=== PATIENT | female | born 1995 | race Caucasian/White ===

== ENCOUNTER 2018-08-16 07:49 | Emergency (ER) | payer MEDICAID ==
[~2018-08-16] VITALS: Ht 157.5 cm; Wt 63.5 kg
[2018-08-16] MEDS ORDERED: NAPROXEN 500 MG TABLET ONE (08:20)
--- NOTE | 2018-08-16 08:23 | NUR ---
Patient discharged to home in stable conditon. Written and verbal after care instructions given. Patient verbalizes understanding of instructions.
[2018-08-16] MEDS ORDERED: NAPROXEN 500 MG TABLET PO ONE (08:30)
== END 2018-08-16 08:25 | disposition home or self-care (01) ==
LOC: ER 07:51
DX: M25.512 Pain in left shoulder (principal)
CPT/HCPCS: 73030; A4663

== ENCOUNTER 2018-09-02 15:46 | Emergency (ER) | payer MEDICAID ==
[~2018-09-02] VITALS: Ht 160 cm; Wt 63.5 kg
[2018-09-02] MEDS ORDERED: IBUPROFEN 600 MG TABLET PO ONE (16:15)
[2018-09-02 16:17] LABS: BASOPHILS # (AUTO) 0.1 K/uL (0.0-8.0); BASOPHILS % (AUTO) 0.8 % (0.0-2.0); EOSINOPHILS % (AUTO) 0.3 % (0.0-7.0); HEMOGLOBIN 10.6 g/dL (10.9-14.3); LYMPHOCYTES # (AUTO) 1.7 K/uL (20.0-40.0); LYMPHOCYTES % (AUTO) 27.7 % (20.5-74.5); MEAN CORPUSCULAR HEMOGLOBIN 23.7 uug (24.7-32.8); MEAN CORPUSCULAR HGB CONC 32 g/dL (32.3-35.6); MONOCYTES # (AUTO) 0.5 K/uL (2.0-10.0); MONOCYTES % (AUTO) 8.2 % (0-11); NEUTROPHILS # (AUTO) 3.9 K/uL (1.8-8.9); PLATELET COUNT (AUTO) 353 K/uL (179-408); RED BLOOD CELL COUNT(AUTO) 4.47 MIL/uL (3.63-4.92); WHITE BLOOD COUNT (AUTO) 6.2 K/uL (3.8-11.8)
[2018-09-02] MEDS ORDERED: IBUPROFEN 600 MG TABLET ONE (16:22)
--- NOTE | 2018-09-02 16:28 | NUR ---
PT IS IN ROOM #2A. DR DIMAS EVALUATED THE PT.
--- NOTE | 2018-09-02 17:30 | NUR ---
Patient discharged to home in stable conditon. Written and verbal after care instructions given. Patient verbalizes understanding of instructions.
== END 2018-09-02 17:34 | disposition home or self-care (01) ==
LOC: ER 15:46
DX: M25.551 Pain in right hip (principal); M25.511 Pain in right shoulder
CPT/HCPCS: 36415; 85025; 85651; A4663

== ENCOUNTER 2019-04-28 19:45 | Emergency (ER) | payer MEDICAID, OTHER ==
[~2019-04-28] VITALS: Ht 157.5 cm; Wt 63.5 kg
--- NOTE | 2019-04-28 20:39 | NUR ---
Patient left without being seen by ER physician. Pt was triaged
== END 2019-04-28 20:41 | disposition left against medical advice (07) ==
LOC: ER 19:45
DX: Z53.21 Procedure and treatment not carried out due to patient leaving prior to being seen by health care provider (principal)
CPT/HCPCS: A4663

== ENCOUNTER 2023-03-18 11:28 | Emergency (ER) | payer OTHER ==
[~2023-03-18] VITALS: Ht 157.5 cm; Wt 62.1 kg
[2023-03-18] MEDS ORDERED: LIDOCAINE VISCUS 2% 15 ML UDC MM ONE (11:45)
[2023-03-18] MEDS ORDERED: FAMOTIDINE. 20 MG/2 ML VIAL IV ONE ×2 (11:45→11:54)
[2023-03-18] MEDS ORDERED: MAG HYDROX/AL HYDROX/SIMETH 30 ML LIQUID UDC PO ONE (11:45)
[2023-03-18] MEDS ORDERED: ONDANSETRON 4 MG/2 ML VIAL IV ONE (11:45)
[2023-03-18] MEDS ORDERED: IV NORMAL SALINE 1000 ML BAG IV ONE (11:45)
[2023-03-18 11:52] LABS: *BILIRUBIN,URIN NEGATIVE (NEGATIVE); *BLOOD, URINE NEGATIVE (NEGATIVE); *CLARITY,URINE CLEAR (CLEAR); *COLOR,URINE YELLOW (YELLOW); *KETONES,URINE NEGATIVE (NEGATIVE); *UROBILINOGEN,URINE 0.2 E.U./dl (NORMAL); LEUKOCYTE ESTERASE ,URINE NEGATIVE (NEGATIVE); NITRITE, URINE NEGATIVE (NEGATIVE); UGLUCOSE NEGATIVE (NEGATIVE)
[2023-03-18] MEDS ORDERED: ONDANSETRON 4 MG/2 ML VIAL ONE (11:53)
[2023-03-18] MEDS ORDERED: LIDOCAINE VISCUS 2% 15 ML UDC ONE (11:54)
[2023-03-18] MEDS ORDERED: MAG HYDROX/AL HYDROX/SIMETH 30 ML LIQUID UDC ONE (11:54)
[2023-03-18 12:03] LABS: HEMATOCRIT 34.8 % (31.2-41.9); MEAN CORPUSCULAR HEMOGLOBIN 28.4 uug (24.7-32.8); MEAN CORPUSCULAR VOLUME 85.7 fL (75.5-95.3); PLATELET COUNT (AUTO) 362 K/uL (179-408)
[2023-03-18 12:12] LABS: *URINE HCG, QUAL NEGATIVE (NEGATIVE)
[2023-03-18 12:15] LABS: CREATININE 0.7 mg/dL (0.6-1.3); POTASSIUM 3.6 mmol/L (3.5-5.1)
--- NOTE | 2023-03-18 12:19 | NUR ---
Pt seen by MD for bedside eval. Safety measures in place. Will continue to monitor.
--- NOTE | 2023-03-18 12:19 | NUR ---
Pt declined using Xylocaine. Safety measures in place. Will continue to monitor.
[2023-03-18 12:20] LABS: BILIRUBIN,DIRECT 0.1 mg/dL (0.0-0.2); BILIRUBIN,TOTAL 0.3 mg/dL (0.2-1.0); TOTAL PROTEIN, SERUM 7.8 g/dL (6.4-8.2)
--- NOTE | 2023-03-18 12:58 | NUR ---
Patient sitting up in bed, IVF complete, no voiced c/o at this time. Patient updated on plan of care. ultrasound at bedside for exam.
[2023-03-18] MEDS ORDERED: ONDA4TAB5 PO (13:05)
[2023-03-18] MEDS ORDERED: FAMO-132 PO (13:05)
[2023-03-18 13:44] VITALS: BP 136/91
--- NOTE | 2023-03-18 13:44 | NUR ---
Patient discharged to home in stable condition. Written and verbal after care instructions given. Patient verbalizes understanding of instructions. Stressed follow up or return to ER for worsening s/s.
== END 2023-03-18 13:44 | disposition home or self-care (01) ==
LOC: ER 11:28
DX: R10.13 Epigastric pain (principal)
CPT/HCPCS: 99285; 96374; 76705; 96361; 96375; 80076; 80048; 81003; 84703; 83690; 85025; 36415; J3490; J2405; J7040; A4663